=== PATIENT | female | born 1960 | race Caucasian/White ===

== ENCOUNTER 2017-06-25 05:46 | Day surgery (SDC) | payer BC ==
[2017-06-25] MEDS ORDERED: LACTATED RINGER'S 1,000 ML IV* (06:00)
== END 2017-06-25 08:08 | disposition home or self-care (01) ==
LOC: SDS 05:46
DX: N92.0 Excessive and frequent menstruation with regular cycle (principal); Z53.9 Procedure and treatment not carried out, unspecified reason; E11.9 Type 2 diabetes mellitus without complications; I10 Essential (primary) hypertension; E66.01 Morbid (severe) obesity due to excess calories; Z68.42 Body mass index [BMI] 45.0-49.9, adult; E78.5 Hyperlipidemia, unspecified
CPT/HCPCS: 82962

== ENCOUNTER 2018-06-13 16:12 | Emergency (ER) | payer BC ==
[2018-06-13] MEDS: ACETAMINOPHEN 325 MG TAB PO (17:49)
[2018-06-13] MEDS: KETOROLAC 60 MG INJ IM (17:50)
[2018-06-13] MEDS: PROMETHAZINE/CODEINE 5ML CUP PO (17:50)
== END 2018-06-13 18:50 | disposition home or self-care (01) ==
LOC: FTE 16:12
DX: J06.9 Acute upper respiratory infection, unspecified (principal); I10 Essential (primary) hypertension; J02.9 Acute pharyngitis, unspecified; Z79.82 Long term (current) use of aspirin; Z79.84 Long term (current) use of oral hypoglycemic drugs
CPT/HCPCS: 71045; 87400; 96372; 99284-25

== ENCOUNTER 2018-11-25 11:04 | Day surgery (SDC) | payer BC ==
[2018-11-25] MEDS ORDERED: SOD CHLORIDE 0.9% 1,000 ML IV (12:30)
[2018-11-25] MEDS ORDERED: EPHEDrine 25 MG/5 ML SYG (13:00)
[2018-11-25] MEDS ORDERED: LIDOCAINE 2% (SDV) 5 ML INJ (13:02)
[2018-11-25] MEDS ORDERED: PROPOFOL 20 ML (13:02)
[2018-11-25] MEDS ORDERED: CEFAZOLIN 1 GM INJ (13:40)
[2018-11-25] MEDS ORDERED: METOCLOPRAMIDE 10 MG INJ IV (14:30)
[2018-11-25] MEDS ORDERED: OXYCODONE/ACETAMINOPHEN (5/325) TAB PO ×2 (14:30)
[2018-11-25] MEDS ORDERED: hydrALAzine 20 MG INJ IV (14:30)
[2018-11-25] MEDS ORDERED: FENTAnyl 50 MCG/ML VIAL IV (14:30)
[2018-11-25] MEDS ORDERED: DIPHENHYDRAMINE 50 MG INJ IV (14:30)
[2018-11-25] MEDS ORDERED: LABETALOL HCL 20MG INJ IV (14:30)
[2018-11-25] MEDS ORDERED: EPHEDrine 25 MG/5 ML SYG IV (14:30)
[2018-11-25] MEDS ORDERED: MIDAZOLAM 1 MG/ML 2 ML INJ IV (14:30)
[2018-11-25] MEDS ORDERED: MIDAZOLAM 1 MG/ML 2 ML INJ (14:33)
[2018-11-25] MEDS ORDERED: FENTAnyl 50 MCG/ML VIAL (14:48)
[2018-11-25] MEDS ORDERED: ONDANSETRON 4 MG INJ (14:48)
[2018-11-25] MEDS ORDERED: MEPERIDINE 25 MG INJ (14:48)
[2018-11-25] MEDS: FENTAnyl 50 MCG/ML VIAL IV ×3 (15:12→15:36)
[2018-11-25] MEDS: MEPERIDINE 25 MG INJ IV (15:14)
[2018-11-25] MEDS: ONDANSETRON 4 MG INJ IV (15:14)
== END 2018-11-25 17:08 | disposition home or self-care (01) ==
LOC: SDS 11:04
DX: N84.0 Polyp of corpus uteri (principal); I10 Essential (primary) hypertension; E11.9 Type 2 diabetes mellitus without complications; E66.01 Morbid (severe) obesity due to excess calories; Z68.42 Body mass index [BMI] 45.0-49.9, adult; Z79.82 Long term (current) use of aspirin
CPT/HCPCS: 58558; 82962; 88305